=== PATIENT | female | born 1945 | race Caucasian/White ===

== ENCOUNTER → 2020-08-11 | Outpatient (CLI) | payer MEDICARE, OTHER ==
[~2020-08-11] MED LIST: ALBU90AE INH; ATOR-2 PO; ATOR10TA9 PO; CALC3.7S5 NAS; CEFD300C37 PO; CELE200C PO; FLUO20CA19 PO; FURO-92 PO; ISOS30TA8 PO; LEVO1CAP3 PO; LOSA25TA2 PO; METO25TA35 PO; PANT40TA3 PO
== END | disposition home or self-care (01) ==
LOC: RAD 10:32
PROVIDERS: ATTEND Family Medicine
DX: M71.21 Synovial cyst of popliteal space [Baker], right knee (principal)

== ENCOUNTER 2021-03-27 12:34 | Emergency (ER) | payer MEDICARE, OTHER ==
[~2021-03-27] VITALS: Ht 162.6 cm; Wt 55.0 kg
[2021-03-27 13:36] LABS: BASOPHILS % (AUTO) 1 % (0-1); EOSINOPHILS % (AUTO) 4 % (1-7); LYMPHOCYTES % (AUTO) 20 % (22-44); MEAN CORPUSCULAR HEMOGLOBIN 29.9 pg (27.0-34.8); MEAN CORPUSCULAR HGB CONC 33.6 g/dL (32.4-35.8); MEAN PLATELET VOLUME 7.8 fL (7.4-10.4); MONOCYTES % (AUTO) 7 % (2-9); NEUTROPHILS % (AUTO) 68 % (42-75); PLATELET COUNT 188 x10^3/uL (130-400); RED BLOOD COUNT 4.51 x10^6/uL (3.82-5.3); RED CELL DISTRIBUTION WIDTH 13.1 % (9.6-15.2)
[2021-03-27 13:44] LABS: ALANINE AMINOTRANSFERASE 35 U/L (12-78); ALBUMIN 3.8 g/dL (3.4-5.0); ANION GAP 10 mmol/L (5-15); CHLORIDE 100 mmol/L (98-107); CREATININE 1.89 mg/dL (0.55-1.02); INTERNATIONAL NORMALIZED RATIO 1.02 (0.93-1.1); PROTHROMBIN TIME 10.9 Seconds (9.6-11.5)
[2021-03-27 13:45] LABS: ALKALINE PHOSPHATASE 95 U/L (45-117); BILIRUBIN,TOTAL 0.7 mg/dL (0.2-1.0); TOTAL PROTEIN 7.7 g/dL (6.4-8.2)
--- NOTE | 2021-03-27 14:35 | NUR ---
administrative services coordinator note: Pt to room from lobby.
--- NOTE | 2021-03-27 14:40 | NUR ---
ark tarry stool on and off for 3-4 weeks. Sent by GI . [facility] on COVID Vaccine NO ABD PAIN/N/V OR DIARRHEA NO NSAID, MILD ETOH USE ABD EXAM WNL
[2021-03-27] MEDS ORDERED: LORazepam 2 MG/ML, 1ML IVPush ONE (15:30)
[2021-03-27 15:52] VITALS: BP 129/72
== END 2021-03-27 15:54 | disposition home or self-care (01) ==
LOC: ED 15:15
DX: K92.1 Melena (principal); I11.0 Hypertensive heart disease with heart failure; I50.9 Heart failure, unspecified; E11.9 Type 2 diabetes mellitus without complications; I25.2 Old myocardial infarction
CPT/HCPCS: 36415; 80053; 85025; 85610; 85730; 86850; 86900; 99283